=== PATIENT | female | born 1990 | race Caucasian/White ===

== ENCOUNTER 2025-04-30 20:17 | Emergency (ER) | payer OTHER ==
[~2025-04-30] VITALS: Ht 167.6 cm; Wt 70.5 kg
--- NOTE | 2025-04-30 20:49 | Physician Documentation ---
History of Present Illness ~ Chief Complaint: Eye Pain Stated Complaint: EYE PAIN Time Seen by MD: 20:40 HPI Patient is a 34-year-old female that presents to the emergency department for evaluation of bilateral eye redness with purulent drainage. Patient reports that she has been on a [place] outer chest over the last couple days went swimming today after a couple of hours noticed that her eyes began draining and became very red. Reports that she has lots of environmental allergies and her allergies have been acting up since she has been adjusted. No fevers nausea vomiting diarrhea eyes do not itch but do she will tender and inflamed. Review of Systems ROS As stated above in the HPI, otherwise all systems are reviewed and negative. Physical Exam Vital Signs: Temperature: 98.7, Heart Rate: 92, Respiratory Rate: 16, BP: 124/75, Pulse Oximetry: 100, Weight: 70.450 Oxygen Flow Rate: 0 Physical Exam VITALS: Reviewed and as above. GENERAL: Alert, no apparent distress. HEENT: Normocephalic, atraumatic, PERRL, EOMI, dry mucosa, conjunctival irritation bilaterally and purulent drainage to the eyes bilaterally RESPIRATORY: Lungs clear, normal breath sounds, no respiratory distress. CHEST: No accessory muscle use, no retractions CV: Regular rate, rhythm, no edema, no murmur, No: JVD GI: Soft, non-tender, bowels sounds present, no rebound, guarding, or rigidity BACK: No CVA tenderness, or swelling MUSCULOSKELETAL No deformities, no edema SKIN: Warm and dry, no rash NEURO: Oriented x4, No motor or sensory deficit PSYCH: Normal mood and affect, no agitation Progress Results/Orders Results/Orders Vital Signs 04/30/25 20:23 Temp 98.7 Pulse 92 Resp 16 B/P (MAP) 124/75 Pulse Ox 100 O2 Flow Rate 0 Medical Decision Making Findings 34 y/o patient with conjunctivitis likely bacterial vs viral. Based on history and physical exam doubt herpes simplex keratitis, gonorrheal conjunctivitis, chlamydial conjunctivitis, orbital cellulitis, acute angle closure glaucoma or uveitis. No ocular trauma. Patient given antibiotics and told to follow up with primary doctor. All questions answered. Patient and family agrees with assessment and plan. Strict ED return precautions were provided. Eye Diff. Dx: Considerations: Include: [place], Conjuctivits-allergic, Conjuctivitis-bacterial, Conjuctivits-chlamydial, Conjuctivitis-viral, Corneal abrasion, Corneal laceration, Corneal ulceration, Foreign body-conjuctiva, Foreign body-corneal, Foreign body-intraocular, Foreign body-lid, Glaucoma, Globe rupture, Hordeolum, Iritis, Orbital cellulitis, Periobital cellulitis, Retinal artery occulsion, Retinal vein occlusion, Rust ring, Subconjunctival hem, Ultraviolet keratitis, Uveitis, Vitreous hemorrhage, Other Departure Disposition: HOME / SELF CARE / HOMELESS Impression: Primary Impression: Conjunctivitis Condition: Stable Discharge Instructions: Bacterial Conjunctivitis, Adult, Foreign Body, Eye Additional Instructions: 34 y/o patient with conjunctivitis likely bacterial vs viral. Based on history and physical exam doubt herpes simplex keratitis, gonorrheal conjunctivitis, chlamydial conjunctivitis, orbital cellulitis, acute angle closure glaucoma or uveitis. No ocular trauma. Patient given antibiotics and told to follow up with primary doctor. All questions answered. Patient and family agrees with assessment and plan. Strict ED return precautions were provided. Referrals: NO PRIMARY CARE PROVIDER (PCP) Prescriptions Polymyxin B Sulfate/Tmp Opth* (Polytrim Ophthalmic Drops*) 10 Ml Bottle 1 DRP EACHEYE Q3H for 7 Days, #1 EACH Prov: BERNADETTE DC 04/30/25 Education Educated: Patient Educated regarding: diagnosis, treatment, need for follow up Signature Scribe Signature: A Attestation: Scribed for Bernadette Dc by JOSE Parra . 04/30/25 20:56 BERNADETTE DC Apr 30, 2025 20:49
[2025-04-30] MEDS ORDERED: POLOS EACHEYE (20:55)
[2025-04-30] MEDS: polymyxin B sulf/tmp ophth drops 10ml EACHEYE SCH (21:11)
[2025-04-30 21:15] VITALS: BP 123/74; PULSE 89; RESP 18; TEMP 98.6; O2SAT 99
== END 2025-04-30 21:23 | disposition home or self-care (01) ==
LOC: ER 20:18
DX: H10.9 Unspecified conjunctivitis (principal)
CPT/HCPCS: 99283